=== PATIENT | female | born 1985 | race Caucasian/White ===

== ENCOUNTER → 2017-08-10 17:27 | Outpatient (CLI) | payer MEDICARE ==
[2017-08-10 18:09] LABS: APPEARANCE CLEAR (CLEAR); BILIRUBIN NEGATIVE (NEGATIVE); COLOR YELLOW (YELLOW); GLUCOSE NEGATIVE (NEGATIVE); KETONE SMALL mg/dL (NEGATIVE); LEUKOCYTE ESTERASE NEGATIVE (NEGATIVE); NITRITE NEGATIVE (NEGATIVE); PROTEIN NEGATIVE (NEGATIVE); SPECIFIC GRAVITY 1.015 (1.005-1.020); UROBILINOGEN NORMAL (NORMAL)
[2017-08-10 21:05] LABS: UDS - AMPHET NEGATIVE QUAL (NEGATIVE); UDS - BARB NEGATIVE QUAL (NEGATIVE); UDS - BENZO NEGATIVE QUAL (NEGATIVE); UDS - COCAINE NEGATIVE QUAL (NEGATIVE); UDS - METH NEGATIVE QUAL (NEGATIVE); UDS - OPIATE NEGATIVE QUAL (NEGATIVE); UDS - PCP NEGATIVE QUAL (NEGATIVE); UDS - THC NEGATIVE QUAL (NEGATIVE)
[2017-08-10 21:12] LABS: BASOPHILS 0.1 % (0-2); EOSINOPHILS 0.5 % (0-7); HEMATOCRIT 38.9 % (36.0-48.0); HEMOGLOBIN 13.7 g/dL (12-16); IMMATURE GRANULOCYTES 0.3 % (0-5); LYMPHOCYTES 30.5 % (15-50); MCH 32.5 pg (26.0-34.0); MCHC 35.2 g/dL (31.0-37.0); MCV 92.2 fL (80.0-100.0); MEAN PLATELET VOLUME 10.5 fL (7.4-10.4); MONOCYTES 7.1 % (2-11); NEUTROPHILS 61.5 % (40-80); PLATELET COUNT 240 10x3/uL (130-400); RBC 4.22 10x6/uL (4.00-5.40); RDW 13.8 % (11.5-14.5); WBC 9.7 10x3/uL (4.8-10.8)
== END | disposition home or self-care (01) ==
LOC: D.LDO 17:27
PROVIDERS: Obstetrics & Gynecology
DX: O26.899 Other specified pregnancy related conditions, unspecified trimester (principal); Z3A.00 Weeks of gestation of pregnancy not specified

== ENCOUNTER 2017-09-21 05:38 | Inpatient (IN) | payer MEDICARE ==
[2017-09-21] VITALS (13 sets, daily range): BP systolic 108–131; BP diastolic 63–84; Ht 162.6 cm; Wt 98.0 kg
[~2017-09-21] VITALS: Ht 162.6 cm; Wt 98.0 kg
[2017-09-21 06:27] LABS: HEMATOCRIT 43.3 % (36.0-48.0); HEMOGLOBIN 15.4 g/dL (12-16); MCHC 35.6 g/dL (31.0-37.0); MCV 92.7 fL (80.0-100.0); MEAN PLATELET VOLUME 10.3 fL (7.4-10.4); RBC 4.67 10x6/uL (4.00-5.40); RDW 13.6 % (11.5-14.5); WBC 8.4 10x3/uL (4.8-10.8)
[2017-09-21 07:25] LABS: APPEARANCE CLOUDY (CLEAR); BILIRUBIN NEGATIVE (NEGATIVE); COLOR YELLOW (YELLOW); GLUCOSE NEGATIVE (NEGATIVE); KETONE MODERATE mg/dL (NEGATIVE); NITRITE NEGATIVE (NEGATIVE); PROTEIN NEGATIVE (NEGATIVE); SPECIFIC GRAVITY 1.015 (1.005-1.020); UROBILINOGEN NORMAL (NORMAL)
[2017-09-21 07:28] LABS: BACTERIA MODERATE /hpf (NONE SEEN); EPITHELIAL CELLS 0-5 /hpf (0-5); MUCUS <1+ /lpf (NONE SEEN); RED CELLS - URINE 0-5 /hpf (0-5)
--- NOTE | 2017-09-21 09:19 | NUR ---
FUNDUS SLIGHTLY TO LEFT OF MIDLINE, FIRM, 2 FINGER WIDTHS ABOVE UMBILLICUS. MINIMAL LOCHIA
--- NOTE | 2017-09-21 09:54 | NUR ---
PT WAS RECEIVED FROM RECOVERY VIA BED. PT IS AWAKE AND ALERT. PT STATES THAT SHE IS HAVING SOME CONTRACTIONS. LUNGS- CLEAR. HEART- RRR. ABD-TENDER. LOW TRANSVERSE INCISION WITH LARGE PRESSURE DRESSING. ICE PACK APPLIED. EXT- MINIMAL EDEMA. SCD'S APPLIED AND INITIATED. IV PATENT R AC. BED IS LOW, SIDE RAILS UP X 2 AND CALL LIGHT IN REACH.
--- NOTE | 2017-09-21 10:45 | NUR ---
BABY TO ROOM FOR MOTHER TO FEED HIM. FAMILY AT BEDSIDE. BED IS LOW, SIDE RAILS UP X 2 AND CALL LIGHT IN REACH.
--- NOTE | 2017-09-21 13:00 | NUR ---
PT STATES SHE IS STILL HAVING PAIN . TORADOL GIVEN IV.
--- NOTE | 2017-09-21 13:15 | NUR ---
PT IS LYING IN BED. HER PADS WERE CHANGED. SHE HAS MODERATE LOCIA RUBRA.
--- NOTE | 2017-09-21 14:36 | NUR ---
PT IS SITTING UP IN BED, HOLDING BABY. SHE OFFERS NO COMPLAINTS.
--- NOTE | 2017-09-21 16:37 | NUR ---
NEW SYRINGE OF DEMEROL STARTED. PT STATES THAT PAIN IS ABOUT A 4 NOW.
--- NOTE | 2017-09-21 17:57 | NUR ---
PT IS SITTING UP IN BED FEEDING BABY. SHE OFFERS NO COMPALINTS. SHE ATE HER CLEAR LIQUID DIET. BED IS LOW, SIDE RAILS UP X 2 AND CALL LIGHT IN REACH.
--- NOTE | 2017-09-21 18:14 | NUR ---
PT'S PADS WERE CHECKED. SHE HAS SCANT LOCIA RUBRA ON CORTNEY PAD.
--- NOTE | 2017-09-21 19:00 | NUR ---
PATIENT REPORT RECEIVED FROM [facility] TO ASSUME PATIENT CARE.
--- NOTE | 2017-09-21 19:00 | NUR ---
PATIENT REPORT RECEIVED FROM [facility].
--- NOTE | 2017-09-21 19:05 | NUR ---
CALLED TO ROOM BY PATIENT, PT STATES THAT SHE IS CRAMPING 04/23. REQUESTING PAIN MEDICATION. TORADOL 30MG SLOW IVP GIVEN AT THIS TIME PER MD ORDERS.
--- NOTE | 2017-09-21 19:35 | NUR ---
PATIENT LYING QUIETLY IN BED WITH EYES OPEN, STATES THAT HER PAIN IS A 5/10. PT COMPLAINED OF BED BEING WET. IV TUBING NOTED TO BE LEAKING, ALL TUBING CHANGED, BED LINENS AND GOWN CHANGED. FRESH ICE WATER PROVIDED. PT DENIES OTHER NEEDS. IS TEACHING COMPLETED, ALL QUESTIONS ANSWERED. CALL CAO IN REACH. PT VERBALIZES UNDERSTANDING TO CALL WITH ANY FURTHER NEEDS.
--- NOTE | 2017-09-21 20:41 | NUR ---
PT RESTING WITH EYES CLOSED, RESP QUIET, NO DISTRESS NOTED, LEFT UNDISTURBED AT THIS TIME
--- NOTE | 2017-09-21 21:24 | NUR ---
IN TO CHECK ON PATIENT, PT HOLDING IN ARMS. IV BEEPING OCCLUDED, PATIENTS ARM STRAIGHTENED AND IV RUNNING WITHOUT DIFFICULTY. NO NEEDS IDENTIFIED.
--- NOTE | 2017-09-21 21:47 | NUR ---
PATIENT SITTING UP IN BED HOLDING . DENIES NEEDS AT THIS TIME.
--- NOTE | 2017-09-21 22:24 | NUR ---
PATIENT SITTING UP IN BED, HOLDING . FATHER OF BABY AT BEDSIDE. DENIES NEEDS. STATES 2/10 PAIN. CANDY ROLLING MACHINE OPERATOR IN USE.
--- NOTE | 2017-09-21 22:24 | NUR ---
PATIENT SITTING UP IN BED, HOLDING . DENIES NEEDS. STATES 2/10 PAIN. SUPERVISOR CAR AND YARD IN USE.
--- NOTE | 2017-09-21 23:05 | NUR ---
CALLED TO ROOM BY PATIENT, IV BEEPING. NEW BAG OF NS WITH 20U PITOCIN HUNG AT THIS TIME AT 125ML/HR. IV NOTED TO BE LEAKING AT AERONAUTICAL ENGINEERING OFFICER TUBING. IV PAUSED, WILL GET NEW TUBING.
--- NOTE | 2017-09-21 23:18 | NUR ---
MASTER TECHNICIAN TUBING REPLACED DUE TO LEAK. MULLIGAN CATHETER EMPTIED OF 425ML DARK YELLOW URINE. PATIENT RATES HER PAIN A 2/10 AND IS REQUESTING LIGHTS TO BE TURNED OFF SO SHE CAN GO TO SLEEP. LIGHTS OFF, TRAY WITH ICE WATER AND IS AT BEDSIDE. CALL CAO IN REACH
--- NOTE | 2017-09-22 01:10 | NUR ---
PT AROUSES TO OPENING OF DOOR, RATES INC PAIN 2/, SINK LIGHT TURNED OFF, DENIES FURTHER NEEDS
--- NOTE | 2017-09-22 02:55 | NUR ---
PATIENT SLEEPING, AUDIBLE SNORING NOTED. BED LOCKED IN LOW POSITION, TRAY TABLE AND CALL CAO IN REACH, WILL CONTINUE TO MONITOR.
[2017-09-22 03:48] VITALS: BP 118/67
--- NOTE | 2017-09-22 03:48 | NUR ---
PT RESTING WITH EYES CLOSED, AROUSES TO SOFT VERBAL STIMULATION, VS OBTAINED, PT RATES INC PAIN 02/21, PT DENIES NEEDS AT THIS TIME
--- NOTE | 2017-09-22 05:10 | NUR ---
PT RESTING WITH EYES CLOSED, AROUSES TO SOFT VERBAL STIMULATION, EMPTIED MULLIGAN CATH, FRESH ICE PACK TO ABD, NO VAG BLEEDING OR CLOTS NOTED AT THIS TIME, PT RATES INC PAIN 2/10, DENIES FURTHER NEEDS AT THIS TIME
--- NOTE | 2017-09-22 06:50 | NUR ---
PATIENTS IV SITE NOTED TO BE SLIGHTLY SWOLLEN TO RIGHT SIDE OF INSERTION. IV DC'D. MULLIGAN CATHETER DC'D WITH 450ML CLEAR YELLOW URINE IN BAG. LAB AT BEDSIDE DRAWING BLOOD.IMAGERY INTELLIGENCE DISCONTINUED AT THIS TIME.
[2017-09-22 07:00] LABS: HEMATOCRIT 37.6 % (36.0-48.0); MCH 32.4 pg (26.0-34.0); MCHC 34.6 g/dL (31.0-37.0); MCV 93.8 fL (80.0-100.0); MEAN PLATELET VOLUME 9.8 fL (7.4-10.4); RBC 4.01 10x6/uL (4.00-5.40); RDW 13.8 % (11.5-14.5); WBC 7.1 10x3/uL (4.8-10.8)
--- NOTE | 2017-09-22 07:04 | NUR ---
PATIENT REPORT GIVEN TO [facility] TO ASSUME PATIENT CARE
[2017-09-22 07:26] LABS: RAPID PLASMA REAGIN Non Reactive (Non Reactive)
[2017-09-22 07:30] VITALS: BP 121/74
--- NOTE | 2017-09-22 07:30 | NUR ---
PT IS RECEIVED THIS AM LYING IN BED. GEN- AWAKE AND ALERT. LUNGS-CLEAR. HEART- RRR. ABD- SOFT WITH TENDERNESS. BS +. EXT- MINIMAL EDEMA. IV WAS D'CD THIS AM DUE TO IV INFILTRATING. MULLIGAN HAS BEEN REMOVED. BED IS LOW, SIDE RAILS UP X 2 AND CALL LIGHT IN REACH. PT UP TO VOID. 450 CC.
--- NOTE | 2017-09-22 09:40 | NUR ---
PT IS UP AND HAS TAKEN A SHOWER. HELPED HER DRY OFF AND GET DRESSED. DRESSING REMOVED. INCISION CARE DISCUSSED. PATTED DRY. STERI STRIPS INTACT. INCISION CLEAN, DRY AND INTACT. PAD PLACED OVER INCISION. TOLERATED VERY WELL.
--- NOTE | 2017-09-22 10:15 | NUR ---
PT AMBULATING IN HALLWAYS. TOLERATING WELL.
--- NOTE | 2017-09-22 11:38 | NUR ---
PT IS UP TO THE BATHROOM TO VOID. VOIDED 350 CC.
--- NOTE | 2017-09-22 13:22 | NUR ---
PT UP WALKING IN HALLWAYS. PT WENT TO NURSERY TO GET HER BQBY. BABY IS IN ROMMM. BED IS LOW, SIDE RAILS UP X C AND CALL LIGHT IN REACH,
--- NOTE | 2017-09-22 15:18 | NUR ---
PT REQUESTED PAIN MED. PAIN IS A 05/23. DEMEROL 100 MG GIVEN PO.
--- NOTE | 2017-09-22 15:20 | NUR ---
PT IS SITTING ON SIDE OF BED. FEEDING BABY A BOTTLE.
[2017-09-22 19:24] VITALS: BP 136/81
--- NOTE | 2017-09-22 19:24 | NUR ---
PT SKINNING MACHINE FEEDER LIGHT, C/O INC PAIN, THIS RN TO ROOM, ASSESSMENT PER FLOW SHEET, VS OBTAINED, FF, ML, U/1, PT REPORTS LITE BLEEDING WITH NO CLOTS, BIKINI INC WITH STERI STRIPS CDI WITH NO DRAINAGE NOTED, CORTNEY PAD OVER INC FOR COMFORT AND MOISTURE CONTROL, PT REPORTS FLATUS, NO BM AND VOIDING BY SELF WITH NO DIFFICULTY, RATES INC PAIN 06/23, ADM DEMEROL PO PER MD ORDERS, SEE EMAR, PT INST ON AND VERBALIZES UNDERSTANDING OF AMBULATING, PT INST ON AND DEMONSTRATED INCENTIVE SPIROMETER, PT DENIES FURTHER NEEDS
--- NOTE | 2017-09-22 19:24 | NUR ---
LATE ENTRY: BABY TO [facility] VIA OPEN CRIB CART PER THIS RN
--- NOTE | 2017-09-22 19:56 | NUR ---
PT AMB TO SHINGLE CATCHER, GAIT STEADY, REPORTS THAT SHE IS GOING TO TAKE A LITTLE WALK, FEELS "GASSY", INFORMED PT THAT I WILL CALL DR MARINELLI AND SEE ABOUT AN ORDER FOR GAS, PT STATES "OH, THANK YOU"
--- NOTE | 2017-09-22 19:58 | NUR ---
DR MARINELLI NOTIFIED, REPORT OF PT'S C/O OF GAS AND CRAMPS, ORDERS FOR SIMETHICONE AND MOTRIN
--- NOTE | 2017-09-22 20:18 | NUR ---
PT BACK TO ROOM, ADM SIMETHICONE AND MOTRIN PO PER MD ORDERS, SEE EMAR, PT DENIES FURTHER NEEDS AT THIS TIME
--- NOTE | 2017-09-22 21:00 | NUR ---
PT RESTING WITH EYES CLOSED, RESP QUIET, NO DISTRESS NOTED, LEFT UNDISTURBED AT THIS TIME
--- NOTE | 2017-09-22 22:29 | NUR ---
PT RESTING WITH EYES CLOSED, RESP QUIET, NO DISTRESS NOTED, LEFT UNDISTURBED AT THIS TIME
[2017-09-22 23:41] VITALS: BP 129/70
--- NOTE | 2017-09-22 23:41 | NUR ---
PT FORECLOSURE HOME INSPECTOR LIGHT, C/O INC PAIN, ADM DEMEROL PO PER MD ORDERS, SEE EMAR, PT REPORTS GASSY FEELING IS BETTER, VS OBTAINED, DENIES FURTHER NEEDS AT THIS TIME
--- NOTE | 2017-09-23 00:33 | NUR ---
PT RESTING WITH EYES CLOSED, RESP QUIET, NO DISTRESS NOTED, LEFT UNDISTURBED AT THIS TIME
--- NOTE | 2017-09-23 02:18 | NUR ---
PT RESTING WITH EYES CLOSED, RESP QUIET, NO DISTRESS NOTED, LEFT UNDISTURBED AT THIS TIME
[2017-09-23 03:47] VITALS: BP 128/72
--- NOTE | 2017-09-23 03:47 | NUR ---
PT ARCH PAD CEMENTER LIGHT, VS OBTAINED, C/O INC PAIN AND GAS, ADM DEMEROL AND MYLICON PO PER MD ORDERS, SEE EMAR, PT DENIES FURTHER NEEDS
--- NOTE | 2017-09-23 04:41 | NUR ---
PT RESTING WITH EYES CLOSED, RESP QUIET, NO DISTRESS NOTED, LEFT UNDISTURBED AT THIS TIME
--- NOTE | 2017-09-23 05:40 | NUR ---
PT UP OUT OF ROOM, GAIT STEADY, PT REPORTS "FEELING A LOT BETTER", PT GOING TO TAKE A SHORT WALK AND THEN GO TO [facility] TO GET BABY, PT DENIES NEEDS
--- NOTE | 2017-09-23 05:55 | NUR ---
PT BACK TO ROOM WITH BABY VIA OPEN CRIB CART, BOTTLE PROVIDED FOR BABY, DENIES FURTHER NEEDS
--- NOTE | 2017-09-23 06:50 | NUR ---
SHIFT REPORT TO EBONY FLOWERS RN
[2017-09-23 07:35] VITALS: BP 123/76
--- NOTE | 2017-09-23 07:35 | NUR ---
RECEIVED WITH PT UP IN ROOM. C/O" GAS" PAIN TO SIDES OF ABD. RATES PAIN 4/10. ENCOURAGED PT TO WALK MORE THIS AM TO HELP WITH DISCOMFORT. WILL ALSO GIVE MEDS. ABD SOFT. +BS X4. LUNGS CLEAR TO BASE BILAT PER AUSCULTATION. LOCHIA LIGHT. FUNDUS MIDLINE. FIRM.
--- NOTE | 2017-09-23 08:10 | NUR ---
PT UP WALKING IN [place]. STATES SHE HOPES TO GET RID OF SOME OF HER "GAS BUILD-UP"
[2017-09-23] MEDS ORDERED: MOTRIN600 MG PEG (08:43)
[2017-09-23] MEDS ORDERED: IBUPROFEN600 MG PO (08:46)
[2017-09-23] MEDS ORDERED: MEPERIDINE HCL50 MG PO (08:47)
--- NOTE | 2017-09-23 10:20 | NUR ---
POST OPERATIVE DELIVERY, BOTTLE FEEDING, AND MEDICATION DISCHARGE INSTRUCTIONS GIVEN, F/U APPT MADE AND WRITTEN DOWN FOR PT WELL ON DC TEACHING PRINTED INSTRUCTIONS PROVIDED. RX PROVIDED TO PT FOR IBUPROFEN AND DEMEROL WITH INSTRUCTIONS FOR USE. PT VOICES UNDERSTANDING OF ALL INFORMATION PROVIDED, CONSENT SIGNED FOR TDAP ADMINISTRATION, TDAP GIVEN IN LEFT DELTOID, BANDAID APPLIED.
--- NOTE | 2017-09-23 11:22 | NUR ---
ASSISTED PT TO CAR VIA W/C. PT'S MOM DRIVING HER HOME.
== END 2017-09-23 11:22 | disposition home or self-care (01) | DRG 766 ==
LOC: D.LD 05:38 → D.WS 05:38 → D.LD 07:30 → D.WS 10:00 → D.LD 11:07 → D.WS 09-23 11:22
PROVIDERS: ADMIT Obstetrics & Gynecology
PROC: 10D00Z1 Extraction of Products of Conception, Low, Open Approach (ICD-10-PCS; principal; 2017-09-21 07:30)
DX: O99.824 Streptococcus B carrier state complicating childbirth (principal); Z3A.39 39 weeks gestation of pregnancy; Z37.0 Single live birth; O34.219 Maternal care for unspecified type scar from previous cesarean delivery; O99.334 Smoking (tobacco) complicating childbirth